=== PATIENT | male | born 1995 | race Caucasian/White ===

== ENCOUNTER 2017-10-18 19:13 | Emergency (ER) | payer BC ==
[2017-10-18 19:23] VITALS: BP 135/82
[2017-10-18] MEDS ORDERED: Ondansetron 4 MG/2 ML SDV IVPUSH ONE (19:37)
[2017-10-18] MEDS ORDERED: Sodium Chloride 0.9% 1,000 ML IV ONE (19:37)
--- NOTE | 2017-10-18 20:02 | EDM.PDOC ---
ED HPI GENERAL MEDICAL PROBLEM - General Chief Complaint: Gastrointestinal Problem Stated Complaint: stomach issues unable to keep anything down Time Seen by Provider: 10/18/17 19:20 Source of Information: Reports: Patient History Limitations: Reports: No Limitations - History of Present Illness INITIAL COMMENTS - FREE TEXT/NARRATIVE: Patient presents with onset of the diarrhea and vomiting. He had some brought worse and regular food last evening and when he woke up this morning he had diarrhea. He then felt nauseated during the day and then started in the afternoon having episodes of vomiting. Hasn't really been able to keep much food or fluids down. No blood or bile noted, no bloody stool noted he had another episode of diarrhea. He comes in tonight as he is not able to keep anything down and does have some mild abdominal pain. No fevers chills or sweats. No lightheadedness or dizziness, no coughing cold symptoms chest pain or breathing problems. No headaches, pain is mild, comes and goes, did have some cramps with the diarrhea. - Related Data Allergies Allergy/AdvReac Type Severity Reaction Status Date / Time Penicillins Allergy Other Verified 10/18/17 19:23 Home Meds: Home Meds Ondansetron [Zofran ODT] 4 mg PO Q6H PRN #12 tab.dis 10/18/17 [Rx] Past Medical History - Past Health History Medical/Surgical History: Denies Medical/Surgical History Social & Family History - Family History Family Medical History: Noncontributory - Tobacco Use Smoking Status *Q: Heavy Tobacco Smoker Years of Tobacco use: 11 Packs/Tins Daily: 0.5 - Caffeine Use Caffeine Use: Reports: Energy Drinks - Recreational Drug Use Recreational Drug Use: Yes Drug Use in Last 12 Months: Yes Recreational Drug Type: Reports: Marijuana/Hashish Other Recreational Drug Type: 2 years quit "hard stuff". 2 months quit marijuana ED ROS GENERAL - Review of Systems Review Of Systems: See Below Constitutional: Denies: Fever, Chills, Diaphoresis Respiratory: Denies: Shortness of Breath, Cough Cardiovascular: Denies: Chest Pain GI/Abdominal: Reports: Abdominal Pain, Diarrhea, Nausea, Vomiting. Denies: Bloody Stool Musculoskeletal: Denies: Muscle Pain Skin: Denies: Rash Neurological: Denies: Dizziness, Headache ED EXAM, GI/ABD - Physical Exam Exam: See Below Exam Limited By: No Limitations General Appearance: Alert, WD/WN, No Apparent Distress Throat/Mouth: Normal Inspection, Normal Oropharynx Head: Atraumatic Respiratory/Chest: Lungs Clear, Normal Breath Sounds, Chest Non-Tender Cardiovascular: Normal Peripheral Pulses, Regular Rate, Rhythm, No Edema GI/Abdominal Exam: Normal Bowel Sounds, Soft, Tender, Other (Some mild right lower quadrant pain, no rebound rigidity or Rovsing's tenderness). No: Guarding , Rebound Extremities: No Pedal Edema Neurological: Alert, Oriented Psychiatric: Normal Affect, Normal Mood Skin Exam: Warm, Dry Course - Vital Signs Text/Narrative:: Vomiting and diarrhea and not able to keep any food or fluids down suspect any gastroenteritis, less likely acute appendicitis still highly in the differential. We'll treat him with IV fluids anti-emetics, labs. He has any worsening symptoms and/or changes will consider CT scan. Last Recorded V/S: Last Vital Signs Temp 97.4 F 10/18/17 19:15 Pulse 78 10/18/17 19:15 Resp 18 10/18/17 19:15 BP 135/82 10/18/17 19:15 Pulse Ox 99 10/18/17 19:15 - Orders/Labs/Meds Orders: Active Orders 24 hr Category Date Time Status UA W/MICROSCOPIC [URIN] Stat Lab 10/18/17 19:35 Ordered Sodium Chloride 0.9% [Normal Saline] 1,000 ml Med 10/18/17 19:37 Active IV ONETIME Medication Orders Sodium Chloride (Normal Saline) 1,000 mls @ 500 mls/hr IV ONETIME ONE Stop: 10/18/17 21:36 Last Admin: 10/18/17 19:49 Dose: 500 mls/hr Labs: Laboratory Tests 10/18/17 10/18/17 10/18/17 Range/Units 19:35 19:35 19:35 WBC 6.11 (4.23-9.07) K/mm3 RBC 4.92 (4.63-6.08) M/mm3 Hgb 15.7 (13.7-17.5) gm/L Hct 45.1 (40.1-51.0) % MCV 91.7 (79.0-92.2) fl MCH 31.9 (25.7-32.2) pg MCHC 34.8 (32.2-35.5) g/dl RDW Std Deviation 40.2 (35.1-43.9) fL Plt Count 286 (163-337) K/mm3 MPV 11.3 (9.4-12.3) fl Neut % (Auto) 51.9 (34.0-67.9) % Lymph % (Auto) 31.9 (21.8-53.1) % [place] % (Auto) 10.5 (5.3-12.2) % Eos % (Auto) 5.4 (0.8-7.0) Baso % (Auto) 0.3 (0.1-1.2) % Neut # (Auto) 3.17 (1.78-5.38) K/mm3 Lymph # (Auto) 1.95 (1.32-3.57) K/mm3 [place] # (Auto) 0.64 (0.30-0.82) K/mm3 Eos # (Auto) 0.33 (0.04-0.54) K/mm3 Baso # (Auto) 0.02 (0.01-0.08) K/mm3 Sodium 144 (136-145) mEq/L Potassium 3.6 (3.5-5.1) mEq/L Chloride 106 (98-107) mEq/L Carbon Dioxide 27 (21-32) mEq/L Anion Gap 14.6 (5-15) BUN 15 (7-18) mg/dL Creatinine 1.1 (0.7-1.3) mg/dL Est Cr Clr Drug Dosing 114.64 mL/min Estimated GFR (MDRD) > 60 (>60) mL/min BUN/Creatinine Ratio 13.6 L (14-18) Glucose 92 (74-106) mg/dL Calcium 9.0 (8.5-10.1) mg/dL Total Bilirubin 0.5 (0.2-1.0) mg/dL AST 22 (15-37) U/L ALT 31 (16-63) U/L Alkaline Phosphatase 86 (46-116) U/L Total Protein 7.3 (6.4-8.2) g/dl Albumin 4.2 (3.4-5.0) g/dl Globulin 3.1 gm/dL Albumin/Globulin Ratio 1.4 (1-2) Lipase 87 (73-393) U/L Urine Color Yellow (Yellow) Urine Appearance Clear (Clear) Urine pH 7.0 (5.0-8.0) Ur Specific [place] 1.015 (1.005-1.030) Urine Protein Negative (Negative) Urine Glucose (UA) Negative (Negative) Urine Ketones Negative (Negative) Urine Occult Blood Negative (Negative) Urine Nitrite Negative (Negative) Urine Bilirubin Negative (Negative) Urine Urobilinogen 0.2 (0.2-1.0) Ur Leukocyte Esterase Negative (Negative) Urine RBC Not seen (0-5) /hpf Urine WBC 0-5 (0-5) /hpf Ur Epithelial Cells Not seen (0-5) /hpf Urine Bacteria Occasional (FEW) /hpf Urine Mucus Not seen (FEW) /hpf Meds: Medications Generic Name Dose Route Start Last Admin Trade Name Freq PRN Reason Stop Dose Admin Sodium Chloride 1,000 mls @ 500 mls/hr 10/18/17 19:37 10/18/17 19:49 Normal Saline IV 10/18/17 21:36 500 mls/hr ONETIME ONE Administration Discontinued Medications Generic Name Dose Route Start Last Admin Trade Name Freq PRN Reason Stop Dose Admin Ondansetron HCl 4 mg 10/18/17 19:37 10/18/17 19:49 Zofran IVPUSH 10/18/17 19:38 4 mg ONETIME ONE Administration - Re-Assessments/Exams Free Text/Narrative Re-Assessment/Exam: 10/18/17 21:02 Laboratory evaluation is within normal limits. His white blood cell count is normal, his urinalysis is normal as metabolic panel is actually normal as well. Free Text/Narrative Re-Assessment/Exam: 10/18/17 21:20 Recheck examination patient has no more abdominal pain on deep palpation, he is tolerating oral fluids. His laboratory evaluation was essentially unremarkable. Suspect this may be more of a gastroenteritis, viral enteritis. Seems less likely acute appendicitis or acute abdomen anyway. Not biliary colic or pancreatitis. We'll discharge patient home, off work this morning note given, return precautions given Departure - Departure Time of Disposition: 21:23 Disposition: Home, Self-Care 01 Condition: Fair Clinical Impression: Vomiting and diarrhea Abdominal pain Qualifiers: Abdominal location: right lower quadrant Qualified Code(s): R10.31 - Right lower quadrant pain - Discharge Information Instructions: Diarrhea, Adult, Abdominal Pain, Adult, [id number], Vomiting, Adult Referrals: Elio Winters Jr, MD [Primary Care Provider] - Forms: ED Department Discharge, ED Return to Work/School Form - My Orders Last 24 Hours: My Active Orders 10/18/17 19:35 UA W/MICROSCOPIC [URIN] Stat 10/18/17 19:37 Sodium Chloride 0.9% [Normal Saline] 1,000 ml IV ONETIME - Assessment/Plan Last 24 Hours: My Active Orders 10/18/17 19:35 UA W/MICROSCOPIC [URIN] Stat 10/18/17 19:37 Sodium Chloride 0.9% [Normal Saline] 1,000 ml IV ONETIME
== END 2017-10-18 21:45 | disposition home or self-care (01) ==
LOC: JD.ED 19:13
DX: R19.7 Diarrhea, unspecified (principal); R10.31 Right lower quadrant pain; R11.2 Nausea with vomiting, unspecified; Z88.0 Allergy status to penicillin; F17.210 Nicotine dependence, cigarettes, uncomplicated
CPT/HCPCS: 36415; 80053; 81001; 83690; 85025; 96361; 96374; 99284; J2405; J7040

== ENCOUNTER 2021-07-11 11:36 | Emergency (ER) | payer BC, OTHER ==
[2021-07-11 12:27] VITALS: BP 135/90; PULSE 67
[2021-07-11] MEDS ORDERED: HYDROmorphone 1 MG/ML Syringe IVPUSH ONE (12:39)
[2021-07-11] MEDS: Sodium Chloride 0.9% 10 ML Syringe FLUSH PRN ×2 (12:56→13:22)
[2021-07-11] MEDS ORDERED: Iopamidol 612 MG/ML 100 ML Bottle IVPUSH ONE (13:10)
[2021-07-11] MEDS ORDERED: Iopamidol 612 MG/ML 50 ML SDV IVPUSH ONE (13:10)
== END 2021-07-11 14:55 | disposition home or self-care (01) ==
LOC: JD.ED 11:36
DX: S22.32XA Fracture of one rib, left side, initial encounter for closed fracture (principal); S27.321A Contusion of lung, unilateral, initial encounter; F17.210 Nicotine dependence, cigarettes, uncomplicated; Z79.899 Other long term (current) drug therapy; Z88.0 Allergy status to penicillin; W18.39XA Other fall on same level, initial encounter
CPT/HCPCS: 36415; 71260; 74177; 80053; 83690; 85025; 96374; 99283; J1170; J3490; Q9967

== ENCOUNTER 2021-07-15 02:55 | Emergency (ER) | payer OTHER ==
[2021-07-15 03:33] VITALS: BP 127/72; PULSE 86
[2021-07-15] MEDS ORDERED: Cyclobenzaprine 10 MG Tab PO ONE (03:40)
== END 2021-07-15 04:50 | disposition home or self-care (01) ==
LOC: JD.ED 02:55
DX: S22.32XA Fracture of one rib, left side, initial encounter for closed fracture (principal); S27.321A Contusion of lung, unilateral, initial encounter; Z88.0 Allergy status to penicillin; W18.40XA Slipping, tripping and stumbling without falling, unspecified, initial encounter
CPT/HCPCS: 71046; 99284; A9270; 99283